=== PATIENT | female | born 1950 | race Caucasian/White ===

== ENCOUNTER 2018-05-04 07:41 | Day surgery (SDC) | payer BC ==
[2018-05-04] MEDS ORDERED: PROPOFOL 200 MG/20 ML VIAL As Ordered ×2 (07:45→07:48)
[2018-05-04] MEDS ORDERED: LIDOCAINE 2% INJ 100 MG/5 ML SDV (FOR ANES.) As Ordered (07:48)
[2018-05-04] MEDS: NS 1,000 ML IV (08:00)
[2018-05-04] MEDS ORDERED: fentaNYL 100 MCG/2 ML INJECTION (J3010) As Ordered (08:34)
== END 2018-05-04 09:42 | disposition home or self-care (01) ==
LOC: M OPP 07:41
DX: K57.30 Diverticulosis of large intestine without perforation or abscess without bleeding (principal); K29.50 Unspecified chronic gastritis without bleeding; K58.9 Irritable bowel syndrome, unspecified; K21.9 Gastro-esophageal reflux disease without esophagitis; F33.9 Major depressive disorder, recurrent, unspecified; F41.9 Anxiety disorder, unspecified; Z86.19 Personal history of other infectious and parasitic diseases; Z98.890 Other specified postprocedural states; Z88.0 Allergy status to penicillin; Z91.048 Other nonmedicinal substance allergy status
CPT/HCPCS: 45380

== ENCOUNTER → 2022-06-28 | Outpatient (CLI) | payer BC ==
[~2022-06-28] MED LIST: LIDOCAINE 1% MDV 20ML VIAL As Ordered ONE; OMEP1CAP73 PO; SERT50TA29 PO
[2022-06-28 11:38] VITALS: BP 156/98
== END ==
LOC: M IRPRO 09:57
PROVIDERS: ATTEND Physician Assistant
DX: E04.2 Nontoxic multinodular goiter (principal)

== ENCOUNTER → 2022-07-12 | Outpatient (CLI) | payer BC ==
[2022-07-12 10:15] VITALS: BP 173/83
== END ==
LOC: M IRPRO 09:10
PROVIDERS: ATTEND Physician Assistant
DX: E04.2 Nontoxic multinodular goiter (principal)

== ENCOUNTER → 2023-07-01 | Outpatient (CLI) | payer BC ==
[~2023-07-01] MED LIST changes: -LIDOCAINE 1% MDV 20ML VIAL As Ordered ONE
== END ==
LOC: M RAD 11:55
PROVIDERS: ATTEND Otolaryngology
DX: E05.20 Thyrotoxicosis with toxic multinodular goiter without thyrotoxic crisis or storm (principal)

== ENCOUNTER → 2024-07-31 | Outpatient (CLI) | payer BC | LOC: M RAD 12:58 | PROVIDERS: ATTEND Otolaryngology | DX: E04.2 Nontoxic multinodular goiter (principal) ==